=== PATIENT | male | born 1955 | race Caucasian/White ===

== ENCOUNTER 2018-12-30 10:42 | Emergency (ER) | payer MEDICARE ==
[~2018-12-30] VITALS: Ht 177.8 cm; Wt 81.7 kg
--- OUTSIDE RECORDS SUMMARY | ~2018-12-30 | XMS | Clinical Summary ---
Demographics + + + | Address | [address] | | | [place] [address] | + + + | Home Phone | | + + + | Preferred Language | Unknown | + + + | Marital Status | | + + + | Gnosticism Affiliation | Unknown | + + + | Race | Unknown | + + + | Ethnic Group | Unknown | + + + Author + + + | Author | [facility] [place] | | | and [place] | + + + | Organization | [facility] [place] | | | and [place] | + + + | Address | Unknown | + + + | Phone | Unavailable | + + + Support + + +---------+ + | Name | Relationship | Address | Phone | + + +---------+ + | NONE,PER PATIENT | ECON | Unknown | Unavailable | + + +---------+ + Care Team Providers + +------+ + | Care Mental Health Orderly Name | Role | Phone | + +------+ + PP | Unavailable | + +------+ + Allergies Not on File Medications Not on file Active Problems Not on file Social History + +-------+ +--------+------+ | Tobacco Use | Types | Packs/Day | Years | Date | | | | | Used | | + +-------+ +--------+------+ | Never Assessed | | | | | + +-------+ +--------+------+ + + + | Sex Assigned at | Date Recorded | | | | + + + | Not on file | | + + + + + + + | Job Start Date | Occupation | Industry | + + + + | Not on file | Not on file | Not on file | + + + + + + + + | Travel History | Travel Start | Travel End | + + + + + + | No recent travel history available. | + + Plan of Treatment + + + + + | Health Maintenance | Due Date | Last Done | Comments | + + + + + | Vaccine: | | | | | Dtap/Tdap/Td (1 - | 3 | | | | Tdap) | | | | + + + + + | Vaccine: Zoster (1 | | | | | of 2) | 4 | | | + + + + + | Vaccine: Influenza | | | | | (Season Ended) | 9 | | | + + + + + Results Not on filefrom Last 3 Months Advance Directives Patient has advance care planning documents on file. For more information, please contact:[facility] [place] [address]"
--- OUTSIDE RECORDS SUMMARY | ~2018-12-30 | XMS | Clinical Summary ---
Demographics + + + | Address | [address] | | | [place] [address] | + + + | Home Phone | | + + + | Preferred Language | Unknown | + + + | Marital Status | | + + + | Orthodoxy Affiliation | Unknown | + + + | Race | Unknown | + + + | Ethnic Group | Unknown | + + + Author + + + | Author | [facility] [place] | | | and [place] | + + + | Organization | [facility] [place] | | | and [...] Team Providers + +------+ + | Care Charting Clerk Name | Role | Phone | + [...] documents on file. For more information, please contact:[facility] [address]"
[~2018-12-30 10:42] MED LIST: ACETAMINOPHEN325 M1 PO; ATIVAN1 MG PO; BACITRACIN-POLY30 GM TOP; C-500500 MG PO; COLACE100 MG PO; HYDROCODON-ACE1 EAC3 PO; ORAZINC220 MG PO; PERCOCET 10-321 EACH PO; PROMETHAZINE12.5 M1 PO; SILVADENE20 GM TP; [UNRECOGNIZED DRUG - OTHER] PO
[2018-12-30] MEDS ORDERED: LEVAQUIN750 MG PO (13:33)
--- NOTE | 2018-12-30 15:44 | EKG ---
[facility] [address] [facility] [place] [address] Signed Normal sinus rhythm Normal ECG No previous ECGs available Confirmed by MELVA ADAMS MD ([id number]) on 12/30/2018 3:43:44 PM Electronically Signed By: MELVA ADAMS MD 12/30/18 1544 PATIENT NAME: PREMA MONTE Electrocardiogram DATE OF : 53 PHYSICIAN: MELVA ADAMS MD REPORT #: [id number] REPORT IS CONFIDENTIAL AND NOT TO BE RELEASED WITHOUT AUTHORIZATION
== END 2018-12-30 13:45 | disposition home or self-care (01) ==
LOC: ED 10:42
DX: C34.90 Malignant neoplasm of unspecified part of unspecified bronchus or lung (principal); J18.9 Pneumonia, unspecified organism; F17.200 Nicotine dependence, unspecified, uncomplicated; Z88.0 Allergy status to penicillin; Z88.5 Allergy status to narcotic agent; Z79.899 Other long term (current) drug therapy
CPT/HCPCS: 71260; 80053; 83880; 84484; 85025; 85610; 85730; 93005; 93010; 96360; 96361; 99285-25; 99406; J7030; Q9967

== ENCOUNTER 2019-01-13 18:42 | Inpatient (IN) | payer MEDICARE ==
[~2019-01-13] VITALS: Ht 177.8 cm; Wt 82.1 kg
--- OUTSIDE RECORDS SUMMARY | ~2019-01-13 | XMS | Clinical Summary ---
Demographics + + + | Address | [address] | | | [place] [address] | + + + | Home Phone | | + + + | Preferred Language | Unknown | + + + | Marital Status | | + + + | Orthodoxy Affiliation | Unknown | + + + | Race | Unknown | + + + | Ethnic Group | Unknown | + + + Author + + + | Author | [facility] [place] | | | and [place] | + + + | Organization | [facility] [place] | | | and [place] | + + + | Address | Unknown | + + + | Phone | Unavailable | + + + Support + + + + + | Name | Relationship | Address | Phone | + + + + + | Homero Nuno | ECON | [address] | | | | [place], [place] | | | | | [address] | | + + + + + | Christopher Laurent & Bess | ECON | Unknown | | + + + + + Care Team Providers + +------+ + | Care Enforcement Manager Name | Role | Phone | + +------+ + | Unknown, Physician | PP | | + +------+ + Allergies Not on [...] Results Not on filefrom Last 3 Months Insurance + +--------+ +--------+ +---------+--------+ | Payer | Benefi | Subscriber | Effect | Phone | Address | Type | | | t Plan | ID | roly | | | | | | / | | Dates | | | | | | Group | | | | | | + +--------+ +--------+ +---------+--------+ | MEDICARE | MEDICA | [id number] | 12/11/19 | [phone] | | Medica | | | RE | | 12-Pre | 5 | | re | | | PART A | | sent | | | | | | AND B | | | | | | + +--------+ +--------+ +---------+--------+ + +--------+ +--------+ + + | Guarantor Name | Accoun | Relation to | Date | Phone | Billing Address | | | t Type | Patient | of | | | | | | | | | | + +--------+ +--------+ + + | Yuval Nuno | Person | Self [birth year] | [address] | | | [place] | | 1955 | [phone] | [place] [address] | | | mariusz | | | 8 (Home) | | + +--------+ +--------+ + + Advance Directives Patient has advance care planning documents on file. For more information, please contact:[facility] [place] [address]"
--- OUTSIDE RECORDS SUMMARY | ~2019-01-13 | XMS | Clinical Summary ---
Demographics + + + | Address | [address] | | | [place] [address] | + + + | Home Phone | | + + + | Preferred Language | Unknown | + + + | Marital Status | | + + + | Denominational Affiliation | Unknown | + + + | Race | Unknown | + + + | Ethnic Group | Unknown | + + + Author + + + | Author | [facility] [place] | | | and [place] | + + + | Organization | [facility] [place] | | | and [place] | [...] [place], [place] | | | | | [address] | | + + + + + | Christopher Laurent & Bess | ECON | Unknown | | + + + + + Care Team Providers + +------+ + | Care Assistant Financial Accountant Name | Role | Phone | + [...] +--------+ +---------+--------+ | MEDICARE | MEDICA | [id number] | 12/11/19 | [phone] | | Medica [...] | Self | [birth year] | [address] | | | [place] | | 1955 | [phone] | [place] [address] | | | maruisz | | | 8 (Home) | | + +--------+ +--------+ + + Advance Directives Patient has advance care planning documents on file. For more information, please contact:[facility] and [facility] [place] [address]"
--- OUTSIDE RECORDS SUMMARY | ~2019-01-13 | XMS | Clinical Summary ---
Demographics + + + | Address | [address] | | | [place] [address] | + + + | Home Phone | | + + + | Preferred Language | Unknown | + + + | Marital Status | | + + + | Advent Affiliation | Unknown | + + + | Race | Unknown | + + + | Ethnic Group | Unknown | + + + Author + + + | Author | [facility] [place] | | | and [place] | + + + | Organization | [facility] [place] | | | and [place] [...] [place], [place] | | | | | [address] | | + + + + + | Christopher Laurent & Bess | ECON | Unknown | | + + + + + Care Team Providers + +------+ + | Care Distribution Manager Name | Role | Phone | [...] +--------+ +---------+--------+ | MEDICARE | MEDICA | [id number] | 12/11/19 | [phone] | | Medica [...] | Self | [birth year] | [address] [facility] [address] | | | [place] | | 1955 | [phone] | [place] [address] | | | mariusz | | | 8 (Home) | | + +--------+ +--------+ + + Advance Directives Patient has advance care planning documents on file. For more information, please contact:[facility] and [facility] [place] [address]"
[~2019-01-13 18:42] MED LIST changes: +LEVAQUIN750 MG PO
--- OUTSIDE RECORDS SUMMARY | 2019-01-13 18:44 | XMS ---
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 Shea has no Care Guidelines for this patient. [facility]12 MO[facility] NOTE: Visits indicate total known visits. ED/C VISIT TRACKING (12 MO.) 01/13/2019 18:42 [facility] [place] TYPE: Emergency COMPLAINT: - CHEST DISCOMFORT 12/30/2018 10:[address] [facility] [place] TYPE: Emergency COMPLAINT: - COUGHING BLOOD/SOB DIAGNOSES: - Cough - Other group home (current) drug therapy - Pneumonia, unspecified organism - Allergy status to narcotic agent status - Malignant neoplasm of unspecified part of unspecified bronchus or lung - Nicotine dependence, unspecified, uncomplicated - Allergy status to penicillin INPATIENT VISIT TRACKING (12 MO.) No inpatient visits to display in this time frame [email or web address]
--- NOTE | 2019-01-13 22:02 | NUR ---
PATIENT ARRIVED TO THE UNIT VIA STRETCHER. ALERT AND ORIENTED. ABLE TO MOVE TO BED INDEPENDENTLY. PATIENT REPORTS "I'M ALREADY STARTING TO FEEL BETTER". VS STABLE. TEMP WNL. PATIENT PLACED ON MONITOR. IV FLUIDS STARTED, FLUID BOLUS FROM ED HAS FINISHED. ABX INFUSING. PATIENT CALLED HIS FRIENDS THAT ARE HIS NEXT OF KIN.
--- NOTE | 2019-01-13 22:48 | NUR ---
PATIENT REPORTS NAUSEA. PRN ZOFRAN NOT EFFECTIVE. NOTIFIED. STATES HE WILL PUT IN ORDERS.
--- NOTE | 2019-01-13 23:01 | NUR ---
NAUSEATED AND RETCHING. ASLO C/O SWEATING. GIEN 12.5MG PHENERGAN IV, SPONGED OFF BACK AND GIVEN COOL CLOTH FOR FACE. PT ABLE TO DOZE OFF AFTER PHENERGAN GIVEN.
--- NOTE | 2019-01-14 00:07 | NUR ---
PATIENT APPEARS TO BE SLEEPING SOUNDLY. HOB ELEVATED. PATIENT DESAT TO 86% ON ROOM AIR. 2L NC PLACED, O2 SAT 97%.
--- NOTE | 2019-01-14 01:17 | NUR ---
PATIENT WOKE TO USE URNAL. URINE OUTPUT 275ML, APPEARS LESS CONCENTRATED THAN PREVIOUS VOID. PATIENT DENIES ANY PAIN OR NEEDS. QUICKLY RETURNED TO SLEEPING. EXPIRTORY WHEEZE HEARD THROUGHOUT LUNGS. PATIENT TOLERATING 2L NC WHILE SLEEPING. IV FLUIDS PER ORDER, SITE WNL. PATIENT REMIANS ON MONITOR. ORAL TEMP WNL. CALL LIGHT IN REACH.
--- NOTE | 2019-01-14 03:17 | NUR ---
PATIENT HAS BEEN SLEEPING WELL. WOKE PATIENT TO PLACE O2 SAT MONITOR BACK ONTO PATIENT'S FINGER. PATIENT DENIES ANY NEEDS. PATIENT QUICKLY RETURNS TO RESTING WITH EYES CLOSED. CALL LIGHT IN REACH. VS STABLE. GOOD URINE OUTPUT. IV FLUIDS PER ORDER. SITE WNL.
--- NOTE | 2019-01-14 03:34 | NUR ---
PATIENT HAS SHALLOW BREATHING WHILE ASLEEP. DESAT TO 87% ON 2L NC. O2 TITRATED TO 4L NC TO MAINATIN SATS >90%. PATIENT IS DIAPHORETIC, ORAL TEMP 98.7.
--- NOTE | 2019-01-14 05:08 | NUR ---
PATIENT CONTINUES TO SLEEP SOUNDLY, WAKING ONLY TO USE URNAL. URINE OUTPUT QS. PATIENT DESATS WHILE SLEEPING DUE TO APPARENT SLEEP APNEA. 4L NC IN PLACE TO MAINTAIN O2 SATS >90%. BP READING HAVE BEEN EFFECTED BY PATIENT SLEEPING ON SIDE WITH ARM ELEVATED. REQUEST PATIENT TO ROLL ONTO BACK FOR BP X1. BP 97/52. ALLOWED PATIENT TO REST. CALL LIGHT IN REACH.
--- NOTE | 2019-01-14 05:56 | NUR ---
PATIENT HAS BEEN REMOVING HIS NC. WHEN RN WOKE PATIENT TO REPLACE THE NC, THE PATIENT STATES "IT REED". OFFERED OXY MASK ALTERNATIVE. PATIENT DECLINED. O2 SAY LESS THAN 90% WHILE SLEEPING. DISCUSSED NEED FOR O2 THERAPY AND PATIENT AGREED TO PUT NC BACK INTO PLACE. FLOW TURNED TO 2L TO REDUCE IRRITATION. WILL CONTINUE TO MONITOR. PATIENT DENIES NEED FOR PRN PAIN MEDS. DISCUSSED OPTIONS FOR NON-NARCOTIC PAIN MEDICATION. PATIENT STATES "I DON'T WANT TO GET HOOKED ON THOSE DAMN THINGS AGAIN". REFERRING TO HISTORY OF OPIOID ABUSE. ASSURED PATIENT OF ALTERNATIVES. FRESH ICE WATER PROVIDED. OFFERED PATIENT MENU FOR BREAKFAST. URNAL EMPTIED. PATIENT RETURNED TO RESTING WITH EYE CLOSED. ALSO REQUESTED THE PATIENT GIVE SPUTUM SAMPLE WHEN ABLE, HE AGREES. ORAL TEMP DONE, WNL.
--- NOTE | 2019-01-14 06:45 | NUR ---
PATIENT ARRIVED TO THE UNIT AT 2140 LAST NIGHT. RECEIVED 2500ML BOLUS IN ED AND HAS LR@125 SINCE ARRIVAL. URINE OUTPUT QS. VS STABLE. TEMP 102.0 IN ED, AFEBRILE SINCE ADMISSION. TOLERATES ROOM AIR WHILE AWAKE, 2-4L NC WHILE SLEEPING. LUNGS ARE DIM, EXPIRTORY WHEEZES THROUGHOUT. PAIN IN CHEST WITH DEEP BREATHING OR COUGH. LIDODERM PATCH ORDERS, PATIENT REQUESTED IT ON HIS BACK FOR HIS CHRONIC PAIN. IV DILAUDID IN ED, PATIENT DOES NOT LIKE OPIOID MEDICATION AND HAS DECLINED ANY SINCE ARRIVAL. PATIENT REPORTS NOT SLEEPING WELL FOR MULTIPLE DAYS, FREQUENTLY DROSWEY SINCE ARRIVAL AND SLEPT MOST OF THE NIGHT.
--- NOTE | 2019-01-14 08:11 | NUR ---
PT APPEARS TO BE SLEEPING AT THIS TIME, PT DOES NOT WANT ANYTHING TO EAT AT THIS TIME. PT WANTS TO SLEEP. SPUTUM SAMPLE SENT TO LAB. IT APPEARS TO RED IN COLOR THICK.
--- NOTE | 2019-01-14 09:08 | NUR ---
PT AWAKEN FOR MEDICATIONS. HE REFUSE WING PATCH AND LIDODERM PATCH AT THIS TIME. THEN STATES TELL" DR ADAMS I WANT TO GO HOME IN ONE HOUR!" PHONE CALL TO DR ADAMS AND INFORMED HIM OF PT WISHES.
--- NOTE | 2019-01-14 09:23 | NUR ---
AFTER STAFF TALKED WITH DR ADAMS, PT HAS DECIDED TO STAY. PT WAS NOT WEARING HIS O2 AND SPO2 HAD DECREASED TO LOW 80'S AND THEN WHEN PLACED BACK ON O2 AND HIS O2 STATS HANGING AROUND THE HIGH 80'S
--- NOTE | 2019-01-14 10:56 | NUR ---
PT VERY TEARFUL AT THIS TIME, C/O PAIN 10/10 IN HIS BACK. MEDICATED WITH 1MG DILAUDID AND THEN 30MG OF TORDOL. PT HAS RELEAFE FROM THE DILAUDID AT THIS TIME. TALKED WITH PT ABOUT HIS LUNG CANCER AND THAT HIS 6 YEARS AGO FROM LUNG CANCER. AND THAT THEY WHERE FOR 40 YEARS. HIGH [employer] SWE[employer].
--- NOTE | 2019-01-14 11:36 | NUR ---
DR ADAMS INTO SEE PT THIS AM AND NEW ORDERS RECEIVED. PT IS VERY PLEASENT NOW THAT HIS PAIN IS UNDER CONTROL. PT DID ORDER LUNCH AND IS CURRENTLY DRINK OJ.
--- NOTE | 2019-01-14 13:09 | NUR ---
PT ATE HIS LUNCH AND NOW IS SLEEPING IN THE UP RIGHT SITTING POSITION AT THIS TIME. PT DAUGHTER HAD CALLED AND WANTED TO KNOW WHAT WAS GOING ON. EXPLAINED THAT HER DAD WOULD TALK WITH HER. TRANSFERED CALL INTO PT ROOM. PT HAD NOT TOLD HIS FAMILY YET THAT HE HAS LUNG CANCER.
--- NOTE | 2019-01-14 14:56 | NUR ---
PT MEDICATED WITH 10MG PO OXY AT THIS TIME FOR PAIN 10/. PT COUGH IS HARSH AND PT APPEARS TO USE HIS WHOLE BODY TO COUGH. NO SPUTUM NOTED WITH THE COUGH. REPORT CALLED TO Abel/Lorna PETER RN AND ALL QUESTIONS ANSWERED. PT WAS TRANSPORTED VIA BED ON O2 AND WITH TWO POLYSOM TECH AND GEOVANNA THE FLOAT NURSE. ALL PERSONAL BELONGINGS SENT WITH PT AND PT MEDICATIONS WHERE TAKEN OVER PER VISUALPLANT.
--- NOTE | 2019-01-14 15:20 | NUR ---
PT STATES HE IS HAVING "LUNG" PAIN RATED AT A 7 AND WAS MEDICATED IN CCU JUST PRIOR TO HIS TRANSFER TO [facility]. PT ORIENTED TO THE ROOM.
--- NOTE | 2019-01-14 15:35 | NUR ---
DR ADAMS NOTIFIED OF PT'S PAIN LEVEL. NEW ORDERS GIVEN, PT MEDICATED ORDERED. SEE EMAR.
--- NOTE | 2019-01-14 15:58 | NUR ---
PT STATES HIS PAIN IS NOW GONE AND HE STATES HIS BREATHING FEELS "PRETTY GOOD". PT DECLINES A SHOWER AND STATES HE WOULD LIKE ONE TOMORROW.
--- NOTE | 2019-01-14 16:11 | NUR ---
NICKOLAS IS TEARFUL AND EMOTIONAL ABOUT HIS HEALTH AND STATES THAT HE WOULD LIKE TO SPEAK WITH PASTORAL CARE. I CALLED AND SPOKE WITH JENELLE AND HE STATES HE WILL COME SPEAK WITH THE PT. THE PT ALSO STATES HIS DAUGHTER IS COMING INTO THE HOSPITAL SHORTLY AND THAT HE HAS NOT OF YET SPOKE WITH HER ABOUT HIS HEALTH STATUS. DR ADAMS WAS ALSO UPDATED IN THIS REGARD.
--- NOTE | 2019-01-14 16:43 | NUR ---
TEMP 102, PT ENCOUARGED TO DEEP BREATH AND COUGH AND USE HIS IS WHICH HE IS NOW DOING. PT MEDICATED WITH TYLENOL. WILL CONTINUE TO MONITOR.
--- NOTE | 2019-01-14 17:38 | NUR ---
Patient has no home medications that he takes
--- NOTE | 2019-01-14 18:08 | NUR ---
PT STATES HIS PAIN IS NOW A 1/10 WHICH HE STATES IS "GOOD".
--- NOTE | 2019-01-14 18:15 | NUR ---
TEMP 102.8 AND HE WAS GIVEN SOME TORADOL, BLANKETS REMOVED AND HIS BLOOD WAS JUST DRAWN FOR CULTURES.
--- NOTE | 2019-01-14 18:51 | NUR ---
VO RECIEVED FROM DR ADAMS TO GIVE ANOTHER DOSE OF TYLENOL 500MG NOW. SEE EMAR.
--- NOTE | 2019-01-14 19:00 | NUR ---
SHIFT REPORT RECEIVED FROM BAMBIOKYAZMIN PETER AT BEDSIDE. PT RESTING IN BED, AWAKE, RR WNL. PT ON 2LNC, NO DISTRESS NOTED. PT APPEARS COMFORTABLE AND DENIES NEEDS AT THIS TIME. CALL LIGHT IN REACH. BOARD UPDATED. FR INFUSING AT 75 MLS/HR.
--- NOTE | 2019-01-14 20:00 | NUR ---
ASH FROM SPIRITUAL CARE ARRIVED TO NURSE'S STATION. THIS RN INTRODUCED ASH TO PT. PT KINDLY DECLINED SERVICE FROM RISK. FAMILY IN ROOM, PT RESTING IN CHAIR. DECLINES FURTHER NEEDS, CALL LIGHT IN REACH.
--- NOTE | 2019-01-14 20:10 | NUR ---
I CAME BY EARLIER TO SEE PT AND HE ASKED ME TO COME LATER. HE WAS TRYING TO REST THEN. WHEN I RETURNED LATER HE WAS WITH FAMILY MEMBERS AND SAID NOW WAS NOT A GOOD TIME, TOMORROW BETTER. I TOLD HIM ANOTHER MAN BY THE NAME OF ASH WOULD BE HERE AND HE SAID OK.
--- NOTE | 2019-01-14 20:16 | NUR ---
ORAL TEMP RESULT OF 98.6, PT AWAKE AND VISITING WITH FAMILY. SCHEDULED TYLENOL ADMINISTERED. PT VISITING WITH FAMILY. DENIES ADDITIONAL NEEDS. CALL LIGHT IN REACH.
--- NOTE | 2019-01-14 20:38 | EKG ---
[facility] [address] [place] [address] Signed Poor data quality, interpretation may be adversely affected Sinus tachycardia with fusion complexes Nonspecific ST abnormality Abnormal ECG When compared with ECG of 30-DEC-2018 10:52, fusion complexes are now present Nonspecific T wave abnormality now evident in Lateral leads Confirmed by MELVA ADAMS MD ([id number]) on 01/14/2019 8:38:37 PM Electronically Signed By: MELVA ADAMS MD 01/14/19 2038 PATIENT NAME: PREMA MONTE Electrocardiogram DATE OF : 53 PHYSICIAN: MELVA ADAMS MD REPORT #: [id number] REPORT IS CONFIDENTIAL AND NOT TO BE RELEASED WITHOUT AUTHORIZATION
--- NOTE | 2019-01-14 21:40 | NUR ---
ASSESSMENT COMPLETE, SCHEDULED MEDICATIONS GIVEN (SEE EMAR). PT INITIALLY REPORTS 6-7/10 PAIN AND REQUESTING PAIN MEDICATION. PO DILAUDID OFFERED TO PT, PT CHNAGED MIND AND IS NOW DENYING NEED FOR PAIN MEDICATION. EDUCATION PROVIDED, PT CONTINUES TO DENY NEED. WILL MONITOR. PT A/O TO SELF, PLACE, AND EVENTS. DROWSY, BUT AWAKENS FOR ASSESSMENT THEN RETURNS TO SLEEP. PT KINDLY STATES, "I JUST WANT TO SLEEP". PT ON 2LNC, NO SIGNS OF DISTRESS NOTED. INFORMED BY SUDHIR HUIZAR OF PT'S SBP IN 90'S. MANUAL BP COMPLETED BY THIS RN, RESULT 96/48, PT ASYMPTOMATIC, DENIES DIZZINESS, TRENDING IN 90'S AND LOW 100'S. DISCUSSED WITH NEWS CLIPPING CUTTER. NEWS CLIPPING CUTTER AGREES, NOTIFICATION TO MD NOT NECESSARY. WILL MONITOR. CALL LIGHT IN REACH.
--- NOTE | 2019-01-15 00:10 | NUR ---
SCHEDULED VANCO INFUSING, IV SITE WNL. PT RESTING IN BED, NO SIGNS OF DISTRESS NOTED. NO FURTHER NEEDS, CALL LIGHT IN REACH.
--- NOTE | 2019-01-15 02:31 | NUR ---
ASSESSMENT COMPLETE. NO NEW CONCERNS. PT A/OX4, RATES PAIN 5/10. PRN PO DILAUDID ADMINISTERED. VSS, PT ON 2LNC, O2 SAT WNL. LUNG SOUNDS CONGESTED IN RIGHT LUNG, WILL MONITOR. NO DISTRESS NOTED. IV FLUIDS INFUSING PER MD ORDERS, IV SITE WNL. BOARD UPDATED. PT REPORTED POSITIVE VISIT WITH DAUGHTER AND GRANDDAUGHTER EARLIER IN SHIFT. NO NEEDS AT THIS TIME, CALL LIGHT IN REACH.
--- NOTE | 2019-01-15 04:43 | NUR ---
PT RESTING IN BED, EYES CLOSED, RR WNL. PT ON 2LNC, NO DISTRESS NOTED. IV FLUIDS INFUSING PER MD ORDERS. WILL MONITOR FOR CHANGES. CALL LIGHT IN REACH.
--- NOTE | 2019-01-15 06:30 | NUR ---
SCHEDULED IV ABX ADMINISTERED PER MD ORDERS, IV SITE WNL. PT WITHDRAWN AT THIS TIME AND STATES, "AM I EVER GOING TO GET OUT OF HERE". THERAPEUTIC COMMUNICATION ATTEMPTED BY THIS RN, PT THEN QUIETLY STATES, "I DON'T WANT TO TALK RIGHT NOW". PT DENIES FURTHER NEEDS, CALL LIGHT IN REACH.
--- NOTE | 2019-01-15 07:30 | NUR ---
RN ANAHI MADE AWARE OF PT'S LEAKING IV TO RIGHT FOREARM WHEN FLUSHED. THIS RN DID NOT REMOVE IV SITE PT WAS EMOTIONAL IN THE MORNING AND DID NOT WISH TO CAUSE UNNECESSARY STRESS ON PT AT THIS TIME.
--- NOTE | 2019-01-15 07:30 | NUR ---
BEDSIDE REPORT RECEIVED FROM AUTO BRAKE MECHANIC RN. PT RESTING IN BED. IV FLUIDS INFSUING LR AT 75ML/HR. PT ON 2L NC. PT DENIES NEEDS AT THIS TIME.
--- NOTE | 2019-01-15 07:32 | NUR ---
THIS RN AWARE OF ELEVATED 0600 ORAL TEMP RESULT (SEE CHART). THIS RN IN ROOM TO RECHECK TEMP. RESULT OF 102.0, SECOND RESULT OF 101.7. DR ADAMS MADE AWARE, PRN TYLENOL ADMINISTERED BY DAYSALFT LISA CHRISTIAN. NO NEW ORDERS.
--- NOTE | 2019-01-15 07:39 | NUR ---
PT GIVEN 500 MG TYLENOL FOR FEVER 101.7. PT RESTING QUIETLY IN BED. PT DENIES OTHER NEEDS AT THIS TIME.
--- NOTE | 2019-01-15 07:46 | NUR ---
PT HAD QUIET NIGHT, SLEPT ON AND OFF THIS SHIFT. PT A/O, PAIN CONTROLLED WITH PRN DILAUDID. PT WITHDRAWN IN THE MORNING, DENIED WANT TO DISCUSS DIAGNOSIS AND CURRENT HOSPITALIZATION. ELEVATED TEMP WITH AM VS, PRN TYLENOL ADMINISTERED. MD AWARE. 2LNC IN PLACE. PT VOIDING QS, NO BM. REGULAR DIET, TOLERATING WELL. NO NAUSEA.
--- NOTE | 2019-01-15 09:15 | NUR ---
PT SITTING IN BED. PT ALERT/ORIENTED. PT ON ROOM AIR, RMOVED OXYGEN, O2 SATS 89%, LUNG SOUNDS CLEAR WITH COARSE CRACKLES TO RLL, OCCASIONAL COUGH. PT DENIES PAIN. PT REQUESTING TO TAKE SHOWER. LEFT ARM IV SALINE LOCKED, RIGHT ARM IV DC FOR LEAKING. CMS INTACT, WITHOUT EDEMA. PT REQUESTING TO EAT BREAKFAST AFTER SHOWER. PT ASKING ABOUT DISCAHRGE PLAN, DISCUSSED WITH PT. PT DENIES OTHER NEEDS AT THIS TIME.
--- NOTE | 2019-01-15 09:19 | NUR ---
PATIENT TAKING SHOWER. LINENS CHANGED. PATIENT BACKS TO BED. VITAL SIGNS DONE. LOW BLOOD PRESSURE. RN NOTIFIED. PATIENT'S BREAKFAST ORDERED. CALL LIGHT WITHIN REACH. NO OTHER NEEDS AT THIS TIME
--- NOTE | 2019-01-15 09:48 | NUR ---
PT REQUESTIGN PAIN MEDICATION, RATING PAIN 6/10 TO CHEST, GIVEN 2 MG PO DILAUDID. IV RESTARTED TO LEFT ARM. PT DENIES OTHER NEEDS AT THIS TIME.
--- NOTE | 2019-01-15 12:33 | NUR ---
I WAS FOLLOWING UP FROM ON-CALL KEYING MACHINE OPERATOR THAT WAS CALLED IN TO SEE PT LAST NIGHT. RN EMERY STATED THAT PT DID NOT WANT TO SEE ME AT THIS TIME. WILL FOLLOW NEEDED
--- NOTE | 2019-01-15 12:37 | NUR ---
PT REQUESTIGN PAIN MEDICATION. PT CONTINUES TO HAVE PAIN TO RIGHT CHEST, WORSE WITH COUGHING. PT GIVEN 2MG PO DILAUDID AND LIDOCAINE PATCH APPLIED TO RIGHT CHEST. DAUGHTER AND GRANDAUGHTER AT BEDSIDE. DISCUSSED PLAN OF CARE WITH FAMILY. PT DENIES OTHER NEEDS AT THIS TIME.
--- NOTE | 2019-01-15 13:44 | NUR ---
PATIENT RESTING IN BED. VITAL SIGNS AND I&O DONE. HIGH TEMPERATURE. PATIENT REFUSED TO ORDER LUNCH. RN NOTIFIED. CALL LIGHT WITHIN REACH. NO OTHER NEEDS AT THIS TIME
--- NOTE | 2019-01-15 14:10 | NUR ---
PT RESTING IN BED. PT FEBRILE, TEMP 101.1, GIVEN TYLENOL AND TORADOL PER ORDER. IV VANCO AND AZACTAM INFUSING PER ORDER, CONFIMRED COMPATIBILITY WITH PHARMACIST. AFTERNOON ASSESSMENT COMPLETED, NO ACUTE CHANGES. PT DENIES OTHER NEEDS AT THIS TIME.
--- NOTE | 2019-01-15 15:00 | NUR ---
MD TO BEDSIDE TO EVAULATE PT. PLAN TO CONTINUE IV ABX AND MONITOR FOR FEVERS. PT PROVIDED COOL CLOTH. PT DENIES OTHER NEEDS AT THIS TIME. ALLOWED TO REST.
--- NOTE | 2019-01-15 16:59 | NUR ---
PT RESTIGN IN BED. O2 SATS 94% ON ROOM AIR. PT COMPLAINT OF PAIN WITH COUGHING, GIVEN 4MG PO DILAUDID. D5LR AT 50ML/HR INFUSING. PT DENIES OTHER NEEDS AT THIS TIME.
--- NOTE | 2019-01-15 18:27 | NUR ---
PT ALERT/ORIENTED, FATIGUED FOR MOST OF THE DAY. PT FEBRILE X2 TODAY, TORADOL AND TYLENOL GIVEN. IV VANCO AND AZACTAM, D5LR AT 50 ML/HR. PT WITH PAIN TO RIGHT CHEST, WORSE WITH COUGHING, DILAUDID AND LIDODERM PATCH. PT UP SBA, SOB WITH ACTIVITY. PT LUNG SOUNDS CLEAR WITH COARSE AND CRACKLES TO RIGHT LOWER LOBE, PT FREQUENTLY REMOVED OXYGEN, O2 SAST 88-94% ON ROOM AIR. PT VOIDING QS.
--- NOTE | 2019-01-15 19:44 | NUR ---
SHIFT REPORT RECEIVED FROM [employer] LISA CHRISTIAN AT BEDSIDE. PT RESTING IN BED, EYES CLOSED, RR WNL. PT ON RA, NO DISTRESS NOTED. CALL LIGHT IN REACH. IV FLUIDS INFUSING PER MD ORDERS.
--- NOTE | 2019-01-15 21:00 | NUR ---
PT REPORTS 7/10 PAIN IN RIGHT LUNG AREA R/T COUGH, PRN DILAUDID ADMINISTERED. FAMILY IN ROOM, PT DENIES FURTHER NEEDS, CALL LIGHT IN REACH.
--- NOTE | 2019-01-15 21:45 | NUR ---
ASSESSMENT COMPLETE. PT A/O, DENIES PAIN AFTER RECENT ADMINISTRATION OF PO DILAUDID. PT DROWSY, AWAKENS EASILY. SCHEDULED MEDICATIONS ADMINISTERED, SEE EMAR. PRN TYLENOL ADMINISTERED FOR ORAL TEMP OF 102.4. DR ADAMS NOTIFED, NO NEW ORDERS. IV ABX AND IV FLUIDS INFUSING PER MD ORDERS, IV SITE WNL. FAMILY IN ROOM, QUESTIONS REGARDING CARE FROM DAUGHTER AND GRANDDAUGHTER ANSWERED BY THIS RN. DAUGHTER LUANNE WISHES TO BE PRESENT FOR MD ROUNDING, WILL NOTIFY DAYSHIFT RN AT SHIFT CHANGE.VSS, PT ON 2LNC, NO DISTRESS NOTED. PT HAD BLOODY SPUTUM W/ COUGH X1, WILL MONITOR. NO FURTHER NEEDS, CALL LIGHT IN REACH.
--- NOTE | 2019-01-15 23:48 | NUR ---
ORAL TEMP RESULT OF 100.9. PT AGAIN INSTRUCTED ON IMPORTANCE OF USING IS, TURNING, COUGHING, AND DEEP BREATHING. PT VERBALIZED UNDERSTANDING. DR ADAMS AWARE OF TEMP RESULT AND PT'S EARLIER EPISODE OF BLOODY SPUTUM WITH COUGH. PER DR ADAMS, DO NOT NEED TO CALL IF TEMP IS ABOVE CALL PARAMTERS IF AFTER USE OF TYLENOL AND MOTRIN TEMP IS REDUCED BELOW PARAMETERS. NO FURTHER ORDERS.
--- NOTE | 2019-01-16 00:30 | NUR ---
PRN MOTRIN ADMINISTERED FOR ORAL TEMP OF 100.9. PRN TRAZODONE ALSO ADMINISTERED FOR INSOMNIA. IV FLUIDS INFUSING PER MD ORDERS, IV SITE WNL. CALL LIGHT IN REACH. PT USING IS, ENCOURAGED TO TURN AND DEEP BREATH. PT VERBALIZED UNDERSTANDING.
--- NOTE | 2019-01-16 02:01 | NUR ---
ASSESSMENT COMPLETE, NO NEW CHANGES OR CONCERNS. PT DROWSY, BUT AWAKENS EASILY. PT ON 2L NC, O2 SAT 90%. NO DISTRESS NOTED, PT DENIES PAIN. ORAL TEMP RESULT OF 98.1, WILL CONTINUE TO MONITOR. SCHEDULED VANCO INFUSING, IV SITE WNL, BLOOD RETURN NOTED. NO FURTHER NEEDS, CALL LIGHT IN REACH.
--- NOTE | 2019-01-16 03:12 | NUR ---
IV ABX INFUSING PER MD ORDERS, IV SITE WNL. PT APPEARS COMFORTABLE, 2LNC IN PLACE. NO NEEDS, CALL LIGHT IN REACH.
--- NOTE | 2019-01-16 07:00 | NUR ---
BEDSIDE HANDOFF REPORT RECEIVED FROM SANDBLAST CARVER RN. PT SLEEPING, LEFT UNDISTURBED.
--- NOTE | 2019-01-16 07:30 | NUR ---
PATIENT SLEEPING IN BED. CALL LIGHT WITHIN REACH. NO OTHER NEEDS AT THIS TIME
--- NOTE | 2019-01-16 09:00 | NUR ---
PATIENT RESTING IN BED. RN IN ROOM. PATIENT REFUSED TO ORDER BREAKFAST THIS MORNING. SETS UP BATHROOM FOR SHOWER. PATIENT GOES TO TAKE A SHOWER.
--- NOTE | 2019-01-16 09:00 | NUR ---
PT RESTING IN BED, JUST WOKE UP, SLEPT WELL OVERNIGHT. PT DENIES PAIN AT THIS TIME, DISCUSSED PAIN MANAGEMENT, PT DECLINING PAIN MEDICATION AND WILL CALL FOR PAIN MEDICATION NEEDED. PT REQUESTING TO SHOWER, IV FLUSHED, LEAKING DISCONTINUED, DISCUSSED NEW IV AFTER SHOWER. PT ON ROOM AIR O2 SATS 94%, LUNG SOUNDS COARSE WITHRHONCHI TO RIGHT SIDE, CLEAR ON LEFT SIDE, REPORT OF SOB WITH EXERTION. CMS INTACT, WITHOUT EDEMA. PT WITH POOR APPETITE, DECLINING BREAKFAST, REPORTS THAT HE USUALLY DOES NOT EAT BREAKFAST. VOIDING IN URINAL QS. DISCUSSED PLAN OF CARE FOR THE DAY. PT DENIES OTHER NEEDS AT THIS TIME.
--- NOTE | 2019-01-16 09:36 | NUR ---
PATIENT RESTING IN BED. RN IN ROOM. I&O DONE. VITAL SIGNS DONE BY RN. CALL LIGHT WITHIN REACH. NO OTHER NEEDS AT THIS TIME
--- NOTE | 2019-01-16 09:47 | NUR ---
PT COMPLETED WITH SHOWER. PT SOB AFTER SHOWER, 02 INCREASED TO 4L FOR COMFORT, DECREASED TO 2L AFTER SOB IMPROVED. IV ATTEMPT TO RFA, UNABLE TO OBTAIN, ARMS PLACED IN WARM BLANKETS. PT REPORT THAT HE FEELS LIKE HE IS GETTING A FEVER, TEMP 98 AT 0900, WILL CONTINUE TO MONITOR. PT RESTING IN BED. PT DENIES OTHER NEEDS AT THIS TIME.
--- NOTE | 2019-01-16 12:38 | NUR ---
MD TO BEDSIDE TO EVALUATE PT. TEMPERATURE REASSESSED, 101.2, PT GIVEN MOTRIN AND TYLENOL PER ORDER. PT DENIES OTHER NEEDS AT THIS TIME.
--- NOTE | 2019-01-16 13:09 | NUR ---
PATIENT SITTING UP IN CHAIR. GRANDDAUGHTER IN ROOM. VITAL SIGNS AND I&O DONE. CALL LIGHT WITHIN REACH. NO OTHER NEEDS AT THIS TIME
--- NOTE | 2019-01-16 14:16 | NUR ---
PT RETURNED FROM XRAY. IV FLUIDS RESUMED, IV AZACTAM AND IV VANCO INFUSING PER ORDER. PT DENIES OTHER NEEDS AT THIS TIME.
--- NOTE | 2019-01-16 15:00 | NUR ---
SPOKE WITH STAFF NURSES WHO STATE NO KNOWN CASE MANAGEMENT NEEDS AT THIS TIME. THEY WILL PLACE CM CONSULT IF ANYTHING IS NEEDED. DEFER ASSESSMENT AT THIS TIME.
--- NOTE | 2019-01-16 17:07 | NUR ---
PATIENT RESTING IN BED. VITAL SIGNS AND I&O DONE. CALL LIGHT WITHIN REACH. NO OTHER NEEDS AT THIS TIME
--- NOTE | 2019-01-16 17:45 | NUR ---
PT ALERT/ORIENTED. PT ON RA-2L NC, LUNG SOUNDS CLEAR ON LEFT COARSE RHONCHI ON THE RIGHT. PAIN WELL CONTROLLED WITH PO DILAUDID AND LIDOCAINE PATCH, PAIN INCREASES WITH ACTIVITY. PT FEBRILE TODAY, TYLENOL AND MOTRIN GIVEN, REPEAT CHEST XRAY AND BLOOD CULTURES COMPLETED. PT UP WITH SBA/INDEPENDENT IN ROOM. PT WITH POOR APPETITE, TOLERATING REGULAR DIET, FAMILY BRINGS IN FOOD. PT VOIDING QS, HAD BM TODAY.
--- NOTE | 2019-01-16 19:00 | NUR ---
RECIVED REPORT AT BEDSIDE. PT HAS NO REQUESTS AT THIS TIME. DISCUSSED THE PLAN FOR THE NIGHT. PT PARTICIPATED IN REPORT
--- NOTE | 2019-01-16 19:40 | NUR ---
charge nurse rounding note: resting, no distress. ivf infusing, on room air. call light at bedside
--- NOTE | 2019-01-17 00:55 | NUR ---
PT RESTING IN BED WITH EYES CLOSED. NO SIGNS OF DISTRESS. O2 2L NC PLACED.
--- NOTE | 2019-01-17 04:02 | NUR ---
PT AOX3ON 2L NC. LUNG SOUND CLEAR ON LEFT, RIGHT SIDE COARSE AND RHONCI. SMALL SCANT PRODUCTIVE COUGH. PT REFUSING DILUADID, STATING HE NEVER WANTS TO TKE THAT AGAIN. A FEBRILE FOR SHIFT. PT ABLE TO REST MOST OF THE NIGHT. UO QS, USES URINAL AND GETS UP TO BATHROOM. [facility] DRAW DUE [id number] 01-17-19
--- NOTE | 2019-01-17 05:50 | NUR ---
NOTIFIED DOCTOR PENG ABOUT 102.4 TEMP, TREATMENT WITH TYLENOL AND IBPROFEN. WILL CONTIUNE TO MONITOR CLOSELY
--- NOTE | 2019-01-17 06:30 | NUR ---
CHECKED PT TEMP AFTER TREATMENT. DOWN TO 98.8. PT CONCERNED ABOUT THE PLAN FOR HIS TREATMENT. STATTED" I DON'T KNOW WHY IM STILL HERE, NOTHING SEEMS TO BE WORKING SINCE I STILL HAVE A FEVER" WILL PASS ALONG CONCERS TO rn AND THEY CAN DISCUSS TOGHETHER WITH DOC AND FIND THE BEST SOLUTION.
--- NOTE | 2019-01-17 07:25 | NUR ---
RECIEVED BEDSIDE REPORT FROM EMERY Jane RN. PT IS AWAKE AND ALERT, BUT RESTING IN BED. PT APPEARS UPSET DUE TO HOSPITALIZATION. PT HAS BEEN FEBRILE OVERNIGHT, NONFEBRILE AT THIS TIME. PT WANTS A SHOWER WHEN POSSIBLE.
--- NOTE | 2019-01-17 09:41 | NUR ---
PT SHOWERED. PT HAS FAMILY IN ROON. PT HAS NO COMPLAINTS.
--- NOTE | 2019-01-17 16:17 | NUR ---
PT CALLED RN INTO ROOM, HIS IV WAS BURNING AND HURTING. RN WENT IN AND PT WAS WRITHING IN PAIN, CLUTCHING HIS RIGHT CHEST/SHOULDER AND CRYING IN PAIN. RN PLACED O2 AND INSTRUCTED PT TO BREATHE SLOWLY THROUGH HIS NOSE. RN CALLED HOME V[facility]IT FI[employer] CARE MANAGER TO GET PAIN MEDS FOR PT. 4MG DILAUDID PO GIVEN. PT WAS VISABLY CALMER AFTER APROX 10 MINUTES. FAMILY CAME BY. IV WILL BE RESTARTED ONCE FAMILY LEAVES.
--- NOTE | 2019-01-17 16:41 | NUR ---
CORRECTED PHONE NUMBER FOR PT DAUGHTER CARMELO, . LEFT MSG TO CALL M/S.
== END 2019-01-17 18:37 | disposition short-term general hospital (02) | DRG 178 ==
LOC: ED 18:42 → CCU 21:17 → MS 01-14 15:00
PROVIDERS: ADMIT Internal Medicine
DX: J15.6 Pneumonia due to other Gram-negative bacteria (principal); C34.11 Malignant neoplasm of upper lobe, right bronchus or lung; J91.0 Malignant pleural effusion; J15.8 Pneumonia due to other specified bacteria; F17.210 Nicotine dependence, cigarettes, uncomplicated; D50.9 Iron deficiency anemia, unspecified; G47.09 Other insomnia; D47.3 Essential (hemorrhagic) thrombocythemia; Z66 Do not resuscitate; Z88.5 Allergy status to narcotic agent; Z88.0 Allergy status to penicillin
CPT/HCPCS: 36415; 71045; 71046; 80048; 80053; 80202; 81001; 82607; 82728; 82746; 83540; 83605; 83735; 84466; 85025; 85045; 86635; 87070; 87205; 87327; 93005; 93010; 94640; 94668; 94760; 96365; 96366; 96375; 96376; 99285-25; J1170; J1650; J1885; J2185; J2405; J2550; J3370; J3490; J7030; J7060; J7120